=== PATIENT | female | born 1945 | race Caucasian/White ===

== ENCOUNTER → 2017-12-15 | Outpatient (CLI) | payer OTHER ==
[~2017-12-15] MED LIST: ASPIRIN EC81 M1 PO; MULTIVITAMIN; NOHOMEMEDICATIONS; RECLAST 55 MG/100 M IV
== END ==
LOC: M.RAD 16:00
DX: M81.0 Age-related osteoporosis without current pathological fracture (principal); M85.88 Other specified disorders of bone density and structure, other site; Z78.0 Asymptomatic menopausal state